=== PATIENT | female | born 1990 | race Caucasian/White ===

== ENCOUNTER 2019-04-17 23:50 | Inpatient (IN) | payer OTHER ==
--- NOTE | 2019-04-18 00:37 | PN ---
Progress Note - Progress Note Date of Service: 04/18/19 Note: S: Reports contractions since 0200 yesterday that became regular about 1845. States they are now 5-6 minutes apart lasting about one minute. Reports active movement and denies leaking of fluid. O: B/P: 138/75, P: 93, R: 19, T: 97.8 FHR: baseline 120, moderate variability, + accelerations, some early decelerations UCs: q5-6 min by palpation, mild VE: 1/thick/-2, posterior. A: IUP at 39 5/7 weeks Category I FHR, no evidence of metabolic acidemia Early labor vs false labor P: Encouraged PO fluids, position changes for comfort Will re-take B/P after 15-20 min to reassess Reassess in 1-2 hrs or sooner as indicated.
[2019-04-18] MEDS: Lactated Ringers 1000 ML Bag* 1,000 ML IV ONE ×2 (01:24→02:03)
[2019-04-18 01:43] LABS: ABS Lymphocytes 1.5 10^3/ul (1.0-4.8); ABS Monocytes 0.6 10^3/ul (0-0.8); ABS Neutrophils 10.5 10^3/ul (1.5-7.7); Eosinophil % 0.2 %; Hematocrit 39 % (35-47); Hemoglobin 13.2 g/dL (12.0-16.0); Lymphocyte % 12.2 %; Mean Corpuscular HGB Conc 34 g/dL (31-36); Mean Corpuscular Hemoglobin 30 pg (27-31); Mean Corpuscular Volume 88 fL (80-97); Mean Platelet Volume 9.5 fL (7.4-10.4); Nucleated Red Blood Cells % 0.1; Platelet Count 259 10^3/uL (150-450); Red Blood Count 4.44 10^6 /uL (3.70-4.87); Red Cell Distribution Width 13 % (10.5-15); White Blood Count 12.7 10^3/uL (3.5-10.8)
[2019-04-18 01:52] LABS: Albumin 3.6 g/dL (3.2-5.2); BUN/Creatinine Ratio 14.9 (8-20); Calcium 9.3 mg/dL (8.6-10.3); EGFR African American 113.1 (>60); EGFR Non-African American 93.5 (>60); Globulin 3.5 g/dL (2-4); Total Bilirubin 0.3 mg/dL (0.2-1.0); Total Protein 7.1 g/dL (6.4-8.9); Uric Acid 5.7 mg/dL (2.3-6.6)
--- NOTE | 2019-04-18 02:06 | HP ---
General Information - Reason for Visit at 39 5/7 weeks with contractions - General Information Maternal Age: 28 Grav: 1 Para: 0 SAB: 0 IEA: 0 Estimated Due Date: 04/20/19 Maternal Blood Type and Rh: O Negative - Results this Serology/RPR Result: Non-Reactive Rubella Result: Non-Immune HBsAg Result: Negative HIV Result: Negative GBS Culture Result: Negative Past Medical History Delivery History Comment: no prior deliveries Pertinent Past Medical History: Non-Contributory Pertinent Past Surgical History: None Pertinent Family History: See Records Family History Comment: Father: parkinson's, arthritis, hypertension Mother: Preeclampsia, delivered at 36, 37 and 38 weeks (all births) kidney stones, coronary artery disease - Antepartal Records Antepartal Records: Reviewed, Complicated by: - rubella equivocal, rh negative Review of Systems Constitutional: Uncomfortable CV Complaint: No Respiratory: Shortness of Breath: No Gastrointestinal: No Nausea/Vomiting, Normal Bowel Movement Genitourinary: No Dysuria, No Bleeding, No Leaking Fluid Musculoskeletal: Contractions Neurological: No Headache, No Visual Changes Movement: Normal Exam Allergies/Adverse Reactions: Allergies No Known Allergies Allergy (Verified 04/18/19 00:21) B/P: 129/79, P: 87, R: 19, T: 97.8 Lab Values - Entire Visit: Laboratory Tests 04/18/19 04/18/19 04/18/19 01:24 01:24 01:24 WBC 12.7 H RBC 4.44 Hgb 13.2 Hct 39 MCV 88 MCH 30 MCHC 34 RDW 13 Plt Count 259 MPV 9.5 Neut % (Auto) 82.4 Lymph % (Auto) 12.2 Valley % (Auto) 4.9 Eos % (Auto) 0.2 Baso % (Auto) 0.3 Absolute Neuts (auto) 10.5 H Absolute Lymphs (auto) 1.5 Absolute Monos (auto) 0.6 Absolute Eos (auto) 0.0 Absolute Basos (auto) 0.0 Absolute Nucleated RBC 0.0 Nucleated RBC % 0.1 Sodium 133 L Potassium 4.0 Chloride 102 Carbon Dioxide 21 L Anion Gap 10 BUN 11 Creatinine 0.74 Est GFR ( Amer) 113.1 Est GFR (Non-Af Amer) 93.5 BUN/Creatinine Ratio 14.9 Glucose 97 Uric Acid 5.7 Calcium 9.3 Total Bilirubin 0.30 AST 27 ALT 28 Alkaline Phosphatase 364 H Total Protein 7.1 Albumin 3.6 Globulin 3.5 Albumin/Globulin Ratio 1.0 Blood Type O Negative - Measurements Height: 5 ft 7 in Weight: 235 lb Weight in lbs: [phone] Body Mass Index (BMI): 36.8 Pre- Weight: 185 lb Weight Gained This : 50 lbs and 0 ozs - Exam Breast: Breast Exam Deferred CVA: No CVA Tenderness Extremities: No Edema Heart: Normal Rhythm/Heart Sounds HEENT: No Significant Findings Lungs: Clear Bilaterally Reflexes: DTR 2+ Thyroid: No Thyromegaly - Abdominal Exam Abdomen Exam: Non-Tender, Fundal Height Consistent with Dates - Ultrasound/Biophysical Profile Ultrasound Status: Not Done Targeted Exam Findings See L&D Outpatient Visit Provider Note for Findings: N/A Estimated Weight: 8 lb by aric Effacement: 80% Presenting Part: Vertex Membrane Status: Intact Bleeding/Discharge: None EFM Findings - External Monitor Findings Baseline Heart Rate: 120 External Monitor Findings: Accelerations Present, Variability Moderate, Baseline Stable, Variable or Late Deceleration Pattern Present Contractions: Regular, Moderate, 45-90 Seconds Contraction Frequency: 4-6 minutes by palpation, contractions not tracing well on monitor Assessment/Plan - Assessment A: IUP at 39 5/7 weeks Category II FHR Early labor GBS negative Some elevated B/Ps P: Consult via phone with Dr. Valle, she will evaluate patient Robyn to receive IV fluid bolus and O2, will reposition to side-lying CBC, Type & Screen, Uric Acid, CMP Reassess in 30-60 min or sooner as indicated - Obstetrical Risk Factors Obstetrical Risk Factors: Obesity - Plan Plan: Admit - Anticipate Vaginal Delivery - Date/Time of Admission Date of Admission: 04/18/19 Time of Admission: 02:00
[2019-04-18 02:28] LABS: Urine Appearance Cloudy; Urine Bilirubin Negative (Negative); Urine Blood Negative (Negative); Urine Color Yellow; Urine Glucose Negative (Negative); Urine Ketones Negative (Negative); Urine Nitrite Negative (Negative); Urine Protein Negative (Negative); Urine Specific Gravity 1.019 (1.010-1.030); Urine Urobilinogen Negative (Negative)
[2019-04-18] MEDS ORDERED: Sodium Citrate/Citric Acid* 15 ML UDC ONE (02:41)
[2019-04-18] MEDS ORDERED: ceFOXitin 2 GM IVPREMIX* 2 GM/50 ML BAG ONE (02:42)
[2019-04-18] MEDS ORDERED: OXYTOCIN* 10 UNITS/ML 1 ML VIAL ONE (03:01)
[2019-04-18] MEDS ORDERED: Phenylephrine 40 MCG/ML SYRINGE ONE (03:01)
[2019-04-18] MEDS ORDERED: Ketorolac INJ* 30 MG/ML 1 ML VIAL ONE (03:01)
[2019-04-18] MEDS ORDERED: Ondansetron INJ* 2 MG/ML VIAL ONE (03:01)
[2019-04-18] MEDS ORDERED: HYDROmorphone INJ1* 1 MG/ML SYRINGE IV PRN (03:35)
[2019-04-18] MEDS ORDERED: Acetaminophen IV 1GM/100ML * 1,000 MG/100 ML VIAL IVPB ONE (03:35)
[2019-04-18] MEDS ORDERED: DiMENhydriNATE IV* 50 MG/ML VIAL IV PUSH PRN (03:35)
[2019-04-18] MEDS ORDERED: oxyCODONE TAB* 5 MG TAB PO PRN (03:35)
[2019-04-18] MEDS ORDERED: Naloxone* 0.4 MG/ML 1 ML VIAL IV PRN (03:35)
[2019-04-18] MEDS ORDERED: oxyCODONE/Acetamin 5/325 MG* TAB PO PRN (04:29)
[2019-04-18] MEDS ORDERED: RHO D Immune Globulin (HUMAN)* 300 MCG = 1,500 I.U. INJ IM ONE (04:29)
[2019-04-18] MEDS ORDERED: Glycerin ADULT SUPP PR PRN (04:29)
[2019-04-18] MEDS ORDERED: Dibucaine 1% 28.35 GM TUBE PR PRN (04:29)
[2019-04-18] MEDS ORDERED: Witch Hazel PAD* JAR TOPICAL PRN (04:29)
[2019-04-18] MEDS ORDERED: HYDROmorphone INJ* 0.5 MG/0.5 ML SYRINGE IV PRN (04:35)
[2019-04-18] MEDS ORDERED: Oxytocin in LR* 20 UNITS/1,000 ML BAG IVPB SCH (05:00)
[2019-04-18] MEDS ORDERED: Lactated Ringers 1000 ML Bag* 1,000 ML IV SCH (05:00)
--- NOTE | 2019-04-18 08:00 | OP ---
OPERATIVE REPORT: DATE OF OPERATION: 04/18/19 - [facility] DATE OF : [birth year] SURGEON: Mari Valle MD. PRIMARY CLINICAL LABORATORY TECHNICIAN: Munir Alonzo MD. SECONDARY CLINICAL LABORATORY TECHNICIAN: Rita Baxter CNM. ANESTHESIOLOGIST: Saskia Awan MD ANESTHESIA: Spinal. PRE-OP DIAGNOSES: Category II heart tracing, remote from delivery, mild preeclampsia at 39 and 5/7 weeks' intrauterine . POST-OP DIAGNOSES: Category II heart tracing, remote from delivery, mild preeclampsia at 39 and 5/7 weeks' intrauterine . OPERATIVE PROCEDURE: Primary low transverse section. ESTIMATED BLOOD LOSS: 600 cc. URINE OUTPUT: 400 cc of clear yellow urine. IV FLUIDS: 1500 cc of crystalloid. FINDINGS: Revealed a vertex female with Apgars 8 at 1 minute and 9 at 5 minutes. Weight was 8 pounds 13 ounces. No nuchal cord, no meconium. Placenta with 3-vessel cord, manually extracted, intact, sent to Pathology. Normal- appearing tubes and ovaries. Uterine cavity without evidence of retained placental tissue or membrane. COMPLICATIONS: None apparent. DISPOSITION: Stable to recovery room. DESCRIPTION OF PROCEDURE: The patient was placed in dorsal lithotomy position. The abdomen was prepped and draped in a sterile standard fashion. The patient was identified with the universal protocol for correct procedure and patient position. After testing anesthesia to appropriate level, incision was made 2 fingerbreadths above the pubic symphysis with scalpel. This was carried down to the fascia. Fascia was scored in the midline, extended laterally and superiorly using curved Torres scissors. Fascia was superiorly and inferiorly with blunt and sharp dissection. The peritoneum was then entered bluntly. Bladder blade was inserted. Lower uterine segment was then tented up on a limb of Allis. Incision was made with scalpel. This was carried down through to fluid. The incision was extended laterally and superiorly using bandage scissors. The infant was found to be wedged LOT. Head was delivered. Posterior and anterior shoulder delivered. Cord was allowed to pulse for a minute. The cord was then clamped, cut, and the infant was handed off to waiting dip guider stoves. Appropriate cord blood was obtained. The placenta was then manually extracted and noted to be intact 3-vessel cord without any abnormalities. The uterus was exteriorized. Normal tubes and ovaries were seen. Uterine cavity was explored and noted to be free of any membranes or placental tissue. The uterine incision itself was reapproximated using 0 Vicryl x2, first layer running locked, second layer running imbricated. Uterus was returned intraabdominally. Colic gutters were lavaged and hysterotomy site was noted to be hemostatic. The peritoneum was then clamped with Tamiko's and reapproximated using 2-0 Vicryl in a running fashion. The subcu and subfascial area was visualized. Hemostasis was assured with Bovie coagulation. The fascia was then reapproximated using 0 Vicryl in a running fashion x2. Subcu was lavaged again. Hemostasis assured with Bovie coagulation and a subcuticular Camper's stitch was then placed for complete reapproximation of Camper's fascia. This was done in an interrupted fashion x4. The skin was then reapproximated using 4-0 Monocryl in a subcuticular fashion. Mastisol and Steris were applied. All sponge, instrument and blade counts were correct throughout the case. The patient tolerated the procedure well and went to recovery room in stable condition. [id number]/[facility] [place] #: [id number] [facility] INSANEPolo
[2019-04-18] MEDS: Simethicone TAB* 80 MG TAB.CHEW PO SCH ×4 (08:23→20:50)
[2019-04-18] MEDS: Docusate CAP* 100 MG PO SCH ×3 (08:23→20:50)
[2019-04-18] MEDS ORDERED: Measles, Mumps,Rubella VACC* 0.5 ML/VIAL SUBCUT ONE (09:00)
[2019-04-18] MEDS: Ketorolac INJ* 30 MG/ML 1 ML VIAL IV PUSH SCH ×3 (10:00→23:12)
[2019-04-18] MEDS ORDERED: Ketorolac INJ* 30 MG/ML 1 ML VIAL IV PUSH SCH (10:00)
[2019-04-18] MEDS: oxyCODONE/Acetamin 5/325 MG* TAB PO PRN (12:28)
[2019-04-18] MEDS: Acetaminophen TAB* 325 MG PO PRN (20:50)
[2019-04-19] MEDS: oxyCODONE/Acetamin 5/325 MG* TAB PO PRN ×5 (03:50→23:43)
[2019-04-19 06:42] LABS: ABS Eosinophils 0.1 10^3/ul (0-0.6); ABS Lymphocytes 1.6 10^3/ul (1.0-4.8); ABS Monocytes 0.6 10^3/ul (0-0.8); ABS Neutrophils 6.7 10^3/ul (1.5-7.7); Eosinophil % 0.6 %; Hematocrit 33 % (35-47); Lymphocyte % 17.9 %; Mean Corpuscular HGB Conc 33 g/dL (31-36); Mean Corpuscular Hemoglobin 30 pg (27-31); Mean Corpuscular Volume 90 fL (80-97); Mean Platelet Volume 8.9 fL (7.4-10.4); Platelet Count 197 10^3/uL (150-450); Red Blood Count 3.67 10^6 /uL (3.70-4.87); Red Cell Distribution Width 13 % (10.5-15); White Blood Count 9.1 10^3/uL (3.5-10.8)
[2019-04-19] MEDS: Ibuprofen TAB* 600 MG PO PRN ×2 (08:22→19:25)
[2019-04-19] MEDS: Docusate CAP* 100 MG PO SCH ×3 (08:22→20:49)
[2019-04-19] MEDS: Simethicone TAB* 80 MG TAB.CHEW PO SCH ×3 (08:23→20:49)
[2019-04-19] MEDS: Ferrous Gluconate TAB* 324 MG TAB PO SCH ×2 (14:19→21:51)
[2019-04-20] MEDS: oxyCODONE/Acetamin 5/325 MG* TAB PO PRN ×4 (03:19→22:38)
[2019-04-20] MEDS: Ibuprofen TAB* 600 MG PO PRN ×4 (03:19→22:38)
[2019-04-20] MEDS: Simethicone TAB* 80 MG TAB.CHEW PO SCH ×5 (07:25→20:19)
[2019-04-20] MEDS: Docusate CAP* 100 MG PO SCH ×3 (09:08→20:19)
[2019-04-21] MEDS: Acetaminophen TAB* 325 MG PO PRN (05:02)
[2019-04-21] MEDS: Ibuprofen TAB* 600 MG PO PRN (05:02)
[2019-04-21] MEDS: Docusate CAP* 100 MG PO SCH (10:05)
[2019-04-21] MEDS: Simethicone TAB* 80 MG TAB.CHEW PO SCH (10:05)
[2019-04-21 11:33] VITALS: BP 124/66
== END 2019-04-21 11:00 | disposition home or self-care (01) | DRG 540 ==
LOC: MCHOBOUT 23:50 → MCHOB 04-18 01:56
PROVIDERS: ADMIT Midwife; ATTEND Obstetrics & Gynecology
PROC: 10907ZC Drainage of Amniotic Fluid, Therapeutic from Products of Conception, Via Natural or Artificial Opening (ICD-10-PCS; 2019-04-18)
PROC: 10D00Z1 Extraction of Products of Conception, Low, Open Approach (ICD-10-PCS; principal; 2019-04-18 03:04)
DX: O76 Abnormality in fetal heart rate and rhythm complicating labor and delivery (principal); O99.214 Obesity complicating childbirth; O14.04 Mild to moderate pre-eclampsia, complicating childbirth; Z3A.39 39 weeks gestation of pregnancy; Z37.0 Single live birth
CPT/HCPCS: 36415; 80053; 81003; 84550; 85025; 85461; 86850; 86870; 86880; 86900; 86901; 88307; A9270-GY; J0694; J1885; J2405; J2590; J2790

== ENCOUNTER 2021-06-10 06:02 | Inpatient (IN) ==
[2021-06-10] MEDS ORDERED: Sodium Citrate/Citric Acid LIQ 15 ML UDC ONE (06:18)
[2021-06-10] MEDS ORDERED: Lidocaine 1% MPF 5 ML VIAL ONE (06:37)
[2021-06-10] MEDS ORDERED: Buffered Lidocaine 1% SYRIN 1 ml INTRADERM ONE ×2 (06:39→07:00)
[2021-06-10] MEDS ORDERED: ceFOXitin 2 GM PREMIX 50 ML IVPB ONE (07:00)
[2021-06-10] MEDS ORDERED: Morphine PF AMP (0.5MG/ML) 5 MG/10 ML AMP ONE (07:47)
[2021-06-10] MEDS ORDERED: fentaNYL 100 mcg/2 ml 50 MCG/ML VIAL ONE (07:47)
[2021-06-10] MEDS ORDERED: Ondansetron 4 mg VIAL 2 MG/ML 2 ml VIAL ONE (07:54)
[2021-06-10] MEDS ORDERED: Phenylephrine 40 mcg/mL 10mL (400mcg) SYRINGE ONE (08:36)
[2021-06-10] MEDS ORDERED: Metoclopramide 5 MG/ML VIAL (10 mg) ONE (08:56)
[2021-06-10] MEDS ORDERED: Oxytocin 10 UNITS/ML 1 ML VIAL ONE (08:57)
[2021-06-10] MEDS ORDERED: DiMENhydriNATE IV 50 mg/ml 1 ml VIAL IV PUSH PRN (09:56)
[2021-06-10] MEDS ORDERED: Naloxone 0.4 mg VIAL 0.4 mg/ml 1 ml VIAL IV PRN ×2 (09:56)
[2021-06-10] MEDS ORDERED: Naloxone 4 mg VIAL (10 ml) 2 MG in NS 0.9% 250 ml 250 ML IV PRN (09:56)
[2021-06-10] MEDS ORDERED: Ondansetron 4 mg VIAL 2 MG/ML 2 ml VIAL IV PRN (09:56)
[2021-06-10] MEDS ORDERED: Acetaminophen IV 1 GM/100ML 100 ML IV ONE (09:56)
[2021-06-10] MEDS ORDERED: oxyCODONE/Acetamin 5/325 mg TAB PO PRN (09:56)
[2021-06-10] MEDS ORDERED: fentaNYL 100 mcg/2 ml 50 MCG/ML VIAL IV PRN (09:56)
[2021-06-10] MEDS ORDERED: Witch Hazel PAD JAR TOPICAL PRN (10:02)
[2021-06-10] MEDS ORDERED: RHO D Immune Globulin (HUMAN) 300 MCG = 1,500 I.U. INJ IM PRN (10:02)
[2021-06-10] MEDS ORDERED: Dibucaine 1% OINT 28.35 GM TUBE PR PRN (10:02)
[2021-06-10] MEDS ORDERED: Glycerin ADULT 2.4 gm SUPP PR PRN (10:02)
[2021-06-10] MEDS ORDERED: Lactated Ringers 1000 ml BAG 1,000 ML IV SCH (11:00)
[2021-06-10] MEDS ORDERED: Oxytocin in LR 20 UNITS/1,000 ML BAG IVPB SCH (11:00)
[2021-06-10 11:57] LABS: Urine Appearance Clear; Urine Bacteria Absent (Absent); Urine Bilirubin Negative (Negative); Urine Blood 3+ (Negative); Urine Color Straw; Urine Glucose Negative (Negative); Urine Ketones Trace (Negative); Urine Nitrite Negative (Negative); Urine Protein Negative (Negative); Urine Red Blood Cell 3+(>10/hpf) (Absent); Urine Specific Gravity 1.006 (1.002-1.030); Urine Urobilinogen Negative (Negative); Urine White Blood Cell Absent (Absent)
[2021-06-11 06:06] LABS: ABS Eosinophils 0.1 10^3/ul (0-0.6); ABS Lymphocytes 1.6 10^3/ul (1.0-4.8); ABS Monocytes 0.5 10^3/ul (0-0.8); ABS Neutrophils 5.7 10^3/ul (1.5-7.7); Eosinophil % 0.7 %; Hematocrit 32 % (35-47); Hemoglobin 10.9 g/dL (12.0-16.0); Lymphocyte % 20.3 %; Mean Corpuscular HGB Conc 35 g/dL (31-36); Mean Corpuscular Hemoglobin 30 pg (27-31); Mean Corpuscular Volume 88 fL (80-97); Mean Platelet Volume 8.7 fL (7.4-10.4); Platelet Count 191 10^3/uL (150-450); Red Cell Distribution Width 14 % (10-15); White Blood Count 7.9 10^3/uL (3.5-10.8)
[2021-06-11] MEDS ORDERED: Magnesium Sulfate CRYSTAL 454 GM BOX TOPICAL PRN (20:34)
[2021-06-12 08:45] VITALS: BP 142/71
== END 2021-06-12 13:25 | disposition home or self-care (01) | DRG 540 ==
LOC: MCHOB 06:02
PROVIDERS: ADMIT Obstetrics & Gynecology; ATTEND Obstetrics & Gynecology